=== PATIENT | female | born 1980 | race Two or more races ===

== ENCOUNTER 2018-10-28 09:30 | Emergency (ER) | payer OTHER ==
[2018-10-28 10:05] VITALS: BP 128/77; TEMP 99.4; BMI 26.9
[2018-10-28] MEDS ORDERED: ALBUTEROL SO4 2.5/IPRATROPIUM 0.5 INH SOL 3 ML VIAL.NEB. NEB ONE ×2 (10:58→11:07)
[2018-10-28] MEDS ORDERED: guaiFENesin/D-METHORPHAN HB 10 ML UNIT-DOSE CUPS PO ONE (10:58)
[2018-10-28] MEDS ORDERED: DEXAMETHASONE LIQUID 0.5 MG/5 ML 240 ML BULK BOTTLE PO ONE (10:58)
--- NOTE | 2018-10-28 11:01 | PDOC ---
History of Present Illness - General Chief Complaint: Respiratory Stated Complaint: COUGH/PALPITATIONS Time Seen by Provider: 10/28/18 10:51 History Source: Patient Exam Limitations: No Limitations Past History - Travel Traveled outside of the country in the last 30 days: No Close contact w/someone who was outside of country & ill: No - Past Medical History Allergies/Adverse Reactions: Allergies Allergy/AdvReac Type Severity Reaction Status Date / Time No Known Allergies Allergy Verified 10/28/18 10:01 Home Medications: Ambulatory Orders Albuterol Sulfate Inhaler - [Ventolin HFA Inhaler -] 1 - 2 inh PO Q4H #1 inhaler 10/28/18 Azithromycin [Zithromax 250mg Tablets -] 250 mg PO UTDICT #6 tab 10/28/18 Guaifenesin AC [Robitussin AC] 10 ml PO HS #200 ml MDD 1 10/28/18 Sertraline HCl [Zoloft] 100 mg PO ASDIR 10/28/18 predniSONE [Deltasone -] 40 mg PO DAILY #8 tablet 10/28/18 COPD: No - Suicide/Smoking/Psychosocial Hx Smoking History: Current every day smoker Number of Cigarettes Smoked Daily: 6 Information on smoking cessation initiated: No Review of Systems - Review of Systems Able to Perform ROS?: Yes Comments:: 10/28/18 10:57 CONSTITUTIONAL: Present: chills Absent: fever, diaphoresis, generalized weakness, malaise, loss of appetite HEENT: Absent: rhinorrhea, nasal congestion, throat pain, throat swelling, difficulty swallowing, mouth swelling, ear pain, eye pain, visual Changes CARDIOVASCULAR: Absent: chest pain, loss of consciousness, palpitations, irregular heart rate, peripheral edema RESPIRATORY: Present: dry cough Absent: shortness of breath, dyspnea with exertion, orthopnea , wheezing, stridor, hemoptysis GASTROINTESTINAL: Absent: abdominal pain, abdominal distension, nausea, vomiting, diarrhea, constipation, melena, hematochezia GENITOURINARY: Absent: dysuria, frequency, urgency, hesitancy, hematuria, flank pain, genital pain MUSCULOSKELETAL: Absent: myalgia, arthralgia, joint swelling SKIN: Absent: rash, itching, pallor HEMATOLOGIC/IMMUNOLOGIC: Absent: easy bleeding, easy bruising, lymphadenopathy, frequent infections ENDOCRINE: Absent: unexplained weight gain, unexplained weight loss, heat intolerance, cold intolerance NEUROLOGIC: Absent: headache, focal weakness or paresthesias, dizziness, unsteady gait, seizure, mental status changes, bladder or bowel incontinence PSYCHIATRIC: Absent: anxiety, depression, suicidal or homicidal ideation, hallucinations. Is the patient limited Maltese proficient: No *Physical Exam - Vital Signs Last Vital Signs Temp Pulse Resp BP Pulse Ox 99.4 F 112 H 22 H 128/77 98 10/28/18 10:03 10/28/18 10:03 10/28/18 10:03 10/28/18 10:03 10/28/18 10:03 - Physical Exam Comments: 10/28/18 10:58 GENERAL: Well developed, well nourished. Awake and alert. No acute distress. Pt feels warm HEENT: Normocephalic, atraumatic. PERRLA, EOMI. No conjunctival pallor. Sclera are non- icteric. Moist mucous membranes. Oropharynx is clear. NECK: Supple. Full ROM. No JVD. Carotid pulses 2+ and symmetric, without bruits. No thyromegaly. No lymphadenopathy. CARDIOVASCULAR: Regular rate and rhythm. No murmurs, rubs, or gallops. Distal pulses are 2+ and symmetric. PULMONARY: No evidence of respiratory distress. Lungs clear to auscultation bilaterally. No wheezing, rales or rhonchi. Dry cough noted. Unable to take a deep breath without coughing SKIN: Warm and dry. Normal capillary refill. No rashes. No jaundice. NEUROLOGICAL: Alert, awake, appropriate. Cranial nerves 2-12 intact. No deficits to light touch and temperature in face, upper extremities and lower extremities. No motor deficits in the in face, upper extremities and lower extremities. Normoreflexic in the upper and lower extremities. Normal speech. Toes are down- going bilaterally. Gait is normal without ataxia. Medical Decision Making - Medical Decision Making 10/28/18 10:59 the patient is a 38-year-old female with no past medical history, 10 year pack history of smoking, who presents to the emergency department today for dry cough and chills for the past 4 days. Patient states that she had a upper respiratory infection approximately 4 weeks ago which cleared approximately 2 weeks ago. At that time she admitted to sore throat, runny nose and productive cough. She states that she has not tried any medication at home for her symptoms. Denies history of seasonal allergies. Denies fevers, sore throat, earache, chest pain, difficulty breathing, nausea, vomiting and diarrhea. A/P: Bronchitis On exam lungs are clear bilaterally, however patient is unable to take a deep breath without coughing. CXR, meds ordered Will reevaluate 10/28/18 12:07 x-ray shows no pneumonia. Patient feels better after medication. Most likely a bronchitis. We will treat with outpatient antibiotics given smoking history as well as steroids and cough syrup Discharge home with primary care follow-up. I discussed the physical exam findings, ancillary test results and final diagnoses with the patient. I answered all of the patient's questions. The patient was satisfied with the care received and felt comfortable with the discharge plan and treatment plan. The Patient agrees to follow up with the primary care physician/specialist within 24-72 hours. Return precautions were given. *DC/Admit/Observation/Transfer Diagnosis at time of Disposition: Bronchitis - Discharge Dispostion Disposition: HOME Condition at time of disposition: Stable Decision to Admit order: No - Referrals Referrals: Luis Sanchez MD [Primary Care Provider] - - Patient Instructions Printed Discharge Instructions: DI for Acute Bronchitis Additional Instructions: You have bronchitis Please use the inhaler every 4 hours for the next week to help with your cough. Continue taking the prednisone daily for the next 4 days starting tomorrow Take the Z-pack as directed You may take the Robitussin with codeine at night before bed to help with your cough. Do not drive or drink alcohol after taking this medication as it may make you sleepy. Please follow up with your primary care doctor in 1 week if your symptoms are not improving. Return to the emergency department if you have fevers, chills, worsening cough, chest pain, worsening shortness of breath or if you have any changes in your symptoms. - Post Discharge Activity Forms/Work/School Notes: Back to Work
[2018-10-28] MEDS ORDERED: DEXAMETHASONE SOD PHOSPHATE 10 MG/1 ML VIAL ONE (11:06)
[2018-10-28] MEDS ORDERED: guaiFENesin/D-METHORPHAN HB 10 ML UNIT-DOSE CUPS ONE (11:07)
[2018-10-28 12:27] VITALS: PULSE 86
== END 2018-10-28 12:27 | disposition home or self-care (01) ==
LOC: JERFT 09:30
PROC: 3E0F7GC Introduction of Other Therapeutic Substance into Respiratory Tract, Via Natural or Artificial Opening (ICD-10-PCS; principal; 2018-10-28)
DX: J40 Bronchitis, not specified as acute or chronic (principal)
CPT/HCPCS: 71046-TC-FY; 94640; 99281-25

== ENCOUNTER 2022-11-08 13:29 | Emergency (ER) | payer OTHER ==
[2022-11-08 13:45] VITALS: RESP 18; TEMP 98.4; BMI 25.0
[2022-11-08] MEDS ORDERED: MAG HYDROX/AL HYDROX/SIMETH 30 ML UNIT-DOSE CUP PO ONE (14:45)
[2022-11-08] MEDS ORDERED: FAMOTIDINE 20 MG/50 ML IVPB 20 MG/50 ML MG IVPB ONE ×2 (14:45→15:02)
[2022-11-08] MEDS ORDERED: SODIUM CHLORIDE 1,000 ML IV STA (14:45)
[2022-11-08] MEDS ORDERED: MAG HYDROX/AL HYDROX/SIMETH 30 ML UNIT-DOSE CUP ONE (15:01)
[2022-11-08 15:27] LABS: BASO % 0.9 % (0-2.0); HEMATOCRIT 30.6 % (32.4-45.2); HEMOGLOBIN 9.4 GM/dL (10.7-15.3); LYMPH % 32.2 % (8-40); MCH 20.5 pg (25.7-33.7); MCHC 30.8 g/dl (32.0-36.0); MEAN CELL VOLUME 66.5 fl (80-96); MEAN PLT VOLUME 7.1 fl (7.5-11.1); MONO % 6.9 % (3.8-10.2); PLATELET COUNT 475 10^3/uL (134-434); RBC 4.59 M/mm3 (3.60-5.2); RDW 17.3 % (11.6-15.6); WHITE BLOOD COUNT 11.4 K/mm3 (4.0-10.0)
[2022-11-08 15:43] LABS: POTASSIUM 3.5 mmol/L (3.5-5.1)
[2022-11-08 15:45] LABS: CALCIUM 9.3 mg/dL (8.5-10.1)
[2022-11-08 15:46] LABS: ALBUMIN 3.9 g/dl (3.4-5.0); BLOOD UREA NITROGEN 7.8 mg/dL (7-18); MAGNESIUM 2.1 mg/dL (1.8-2.4)
[2022-11-08 15:49] LABS: CREATININE 0.6 mg/dL (0.55-1.3); PHOSPHOROUS 3.7 mg/dL (2.5-4.9)
[2022-11-08 15:51] LABS: BILIRUBIN,TOTAL 0.3 mg/dL (0.2-1)
[2022-11-08] MEDS ORDERED: PANTOPRAZOLE SODIUM 40 MG VIAL IVPUSH ONE (16:19)
[2022-11-08] MEDS ORDERED: PANTOPRAZOLE SODIUM 40 MG VIAL ONE (16:22)
[2022-11-08 16:37] VITALS: BP 144/97; PULSE 79
== END 2022-11-08 17:23 | disposition home or self-care (01) ==
LOC: JER 13:29
PROC: 3E033GC Introduction of Other Therapeutic Substance into Peripheral Vein, Percutaneous Approach (ICD-10-PCS; principal; 2022-11-08)
PROC: 3E033GC Introduction of Other Therapeutic Substance into Peripheral Vein, Percutaneous Approach (ICD-10-PCS; 2022-11-08)
DX: R10.13 Epigastric pain (principal); R12 Heartburn; R11.0 Nausea; R51.9 Headache, unspecified; M54.6 Pain in thoracic spine; R07.9 Chest pain, unspecified
CPT/HCPCS: 36415; 71046-TC-FY; 80053; 83735; 84100; 84484; 85025; 93005; 93010; 99285-25

== ENCOUNTER 2023-04-24 04:03 | Inpatient (IN) | payer OTHER ==
[2023-04-20 14:33] VITALS: BMI 26.2
[2023-04-24] MEDS ORDERED: BUPIVACAINE HCL/PF 0.5% (5MG/ML) 10 ML VIAL ONE ×2 (08:57→08:59)
[2023-04-24] MEDS ORDERED: MIDAZOLAM HCL 2 MG/2 ML SINGLE DOSE VIAL ONE (09:10)
[2023-04-24] MEDS ORDERED: LIDOCAINE HCL/PF 2% SDV 5ML VIAL ONE (09:26)
[2023-04-24] MEDS ORDERED: ceFAZolin SODIUM 1 GM VIAL ONE (09:26)
[2023-04-24] MEDS ORDERED: PROPOFOL 20 ML ONE (09:26)
[2023-04-24] MEDS ORDERED: ROCURONIUM BROMIDE 50 MG/5 ML SYRINGE ONE ×2 (09:27→10:22)
[2023-04-24] MEDS ORDERED: FENTANYL CITRATE/PF 50 MCG/ML VIAL ONE ×3 (09:27→11:39)
[2023-04-24] MEDS ORDERED: ceFAZolin SODIUM 1 GM VIAL IVPB ONE (09:34)
[2023-04-24] MEDS ORDERED: SUCCINYLCHOLINE CHLORIDE 200 MG/10 ML SYRINGE ONE (09:46)
[2023-04-24] MEDS ORDERED: ONDANSETRON 4 MG/2 ML VIAL ONE (10:10)
[2023-04-24] MEDS ORDERED: DEXAMETHASONE SOD PHOSPHATE 4 MG/1 ML VIAL ONE (10:10)
[2023-04-24] MEDS ORDERED: SUGAMMADEX SODIUM 200 MG/2 ML VIAL ONE (10:47)
[2023-04-24] MEDS ORDERED: KETOROLAC TROMETHAMINE 30 MG/1 ML VIAL ONE (11:34)
[2023-04-24] MEDS ORDERED: HYDROmorphone HCl 2 MG/ML VIAL ONE (11:46)
[2023-04-24] MEDS: HYDROmorphone HCl 2 MG/ML VIAL IVPUSH PRN ×4 (11:47→12:20)
[2023-04-24] MEDS ORDERED: ONDANSETRON 4 MG/2 ML VIAL IVPUSH PRN ×2 (11:51→12:00)
[2023-04-24] MEDS ORDERED: ACETAMINOPHEN 1000 MG/100 ML BAG IVPB ONE (11:54)
[2023-04-24] MEDS ORDERED: oxyCODONE HCL 5 MG TABLET PO PRN (12:00)
[2023-04-24] MEDS ORDERED: LACTATED RINGERS SOLUTION 1,000 ML IV SCH (12:00)
[2023-04-24] MEDS ORDERED: IBUPROFEN 800 MG/8 ML IJ IVPB PRN (12:00)
[2023-04-24] MEDS ORDERED: DOCUSATE SODIUM 100 MG CAPSULE (FP) PO PRN (12:03)
[2023-04-24] MEDS ORDERED: HYDROmorphone *PCA* 10MG/50ML DISP.SYRIN ONE (12:37)
[2023-04-24] MEDS ORDERED: HYDROmorphone *PCA* 10MG/50ML DISP.SYRIN PCA SCH (12:45)
[2023-04-24] MEDS: ELECTROLYTE-148 SOLN 1,000 ML IV SCH ×2 (13:50→22:00)
[2023-04-24 15:24] VITALS: RESP 18
[2023-04-24] MEDS ORDERED: CEFAZOLIN SODIUM 2 GM VIAL IVPB SCH (18:00)
[2023-04-25] MEDS: CEFAZOLIN SODIUM 2 GM in DEXTROSE 5%-WATER - 50 ML IVPB SCH ×3 (01:27→18:24)
[2023-04-25] MEDS: SIMETHICONE 80 MG TAB.CHEW (FP) PO PRN ×2 (01:34→19:32)
[2023-04-25] MEDS: ELECTROLYTE-148 SOLN 1,000 ML IV SCH ×2 (07:38→12:19)
[2023-04-25 07:58] LABS: POTASSIUM 4.1 mmol/L (3.5-5.1)
[2023-04-25 07:59] LABS: CALCIUM 8.4 mg/dL (8.5-10.1); HEMATOCRIT 32.3 % (32.4-45.2); HEMOGLOBIN 10.4 GM/dL (10.7-15.3); MCH 25.1 pg (25.7-33.7); MCHC 32.1 g/dl (32.0-36.0); MEAN CELL VOLUME 78.2 fl (80-96); MEAN PLT VOLUME 7.7 fl (7.5-11.1); PLATELET COUNT 378 10^3/uL (134-434); RBC 4.13 M/mm3 (3.60-5.2); RDW 17.8 % (11.6-15.6); WHITE BLOOD COUNT 17.8 K/mm3 (4.0-10.0)
[2023-04-25 08:00] LABS: BLOOD UREA NITROGEN 6.5 mg/dL (7-18)
[2023-04-25 08:03] LABS: CREATININE 0.6 mg/dL (0.55-1.3)
[2023-04-25] MEDS: ENOXAPARIN NA (PORCINE) 40 MG/0.4 ML DISP.SYRIN SQ SCH (09:14)
[2023-04-25] MEDS: oxyCODONE HCL 5 MG TABLET PO PRN (12:17)
[2023-04-25] MEDS: IBUPROFEN 600 MG TABLET (FP) PO PRN ×2 (13:34→19:32)
[2023-04-26 02:24] VITALS: TEMP 98.2
[2023-04-26] MEDS: SIMETHICONE 80 MG TAB.CHEW (FP) PO PRN (05:47)
[2023-04-26] MEDS: oxyCODONE HCL 5 MG TABLET PO PRN (05:47)
[2023-04-26 06:49] LABS: BASO % 0.6 % (0-2.0); EOS % 1.9 % (0-4.5); HEMATOCRIT 31.2 % (32.4-45.2); LYMPH % 27.3 % (8-40); MCH 25.5 pg (25.7-33.7); MCHC 32.1 g/dl (32.0-36.0); MEAN CELL VOLUME 79.3 fl (80-96); MEAN PLT VOLUME 7.8 fl (7.5-11.1); MONO % 11.3 % (3.8-10.2); NEUT % 58.9 % (42.8-82.8); PLATELET COUNT 354 10^3/uL (134-434); RBC 3.93 M/mm3 (3.60-5.2); RDW 17.6 % (11.6-15.6); WHITE BLOOD COUNT 12.1 K/mm3 (4.0-10.0)
[2023-04-26 08:37] VITALS: BP 108/63; PULSE 88
[2023-04-26] MEDS: ENOXAPARIN NA (PORCINE) 40 MG/0.4 ML DISP.SYRIN SQ SCH (09:57)
== END 2023-04-26 11:02 | disposition home or self-care (01) | DRG 513 ==
LOC: J2C 04:03 → J3W 14:11
PROVIDERS: ADMIT Obstetrics & Gynecology; ATTEND Obstetrics & Gynecology
PROC: 0UT70ZZ Resection of Bilateral Fallopian Tubes, Open Approach (ICD-10-PCS; 2023-04-24)
PROC: 0DNW0ZZ Release Peritoneum, Open Approach (ICD-10-PCS; 2023-04-24)
PROC: 0UT90ZL Resection of Uterus, Supracervical, Open Approach (ICD-10-PCS; principal; 2023-04-24 08:30)
DX: N80.03 Adenomyosis of the uterus (principal); N92.1 Excessive and frequent menstruation with irregular cycle; R10.2 Pelvic and perineal pain; K66.0 Peritoneal adhesions (postprocedural) (postinfection); I10 Essential (primary) hypertension
CPT/HCPCS: 36415; 80048; 81025; 85025; 85027; 86850; 86900; 86901; 88305-TC; 88307-TC; 94010; 94760